=== PATIENT | female | born 1965 | race Caucasian/White ===

== ENCOUNTER 2020-08-30 16:26 | Outpatient (CLI) | payer BC, SELFPAY ==
--- NOTE | ~2020-08-30 | MM_ITS ---
EXAMINATION: MM screening paco BI w chase HISTORY: Screening TECHNIQUE: Craniocaudal and mediolateral oblique 3-D tomosynthesis images were obtained and synthetic 2-D images were generated. CAD analysis was submitted and interpreted. COMPARISON: Comparison to multiple prior studies sequentially, with oldest reviewed study dated 07/09. BREAST PARENCHYMAL COMPOSITION: The breasts are heterogenously dense, which may obscure small masses. FINDINGS: There is no evidence of suspicious mass, calcification, or architectural distortion to sugg est malignancy in either breast. There has been no suspicious interval change. IMPRESSION: 1. No mammographic evidence of malignancy. 2. Recommend routine screening mammography in one year. BI-RADS Category 1: Negative Reviewed, dictated and finalized at location A.
== END 2020-08-30 16:27 | disposition home or self-care (01) ==
LOC: ANHIMG 16:28
PROVIDERS: PCP Family Medicine; Visit Provider Family Medicine
DX: Z12.31 Encounter for screening mammogram for malignant neoplasm of breast (principal)
CPT/HCPCS: 77063; 77067

== ENCOUNTER 2021-05-22 12:18 | Outpatient (CLI) | payer BC, SELFPAY ==
--- NOTE | ~2021-05-22 | MMUS_ITS ---
EXAMINATION: MM diagnostic paco BI w chase, US breast BI complete HISTORY: Palpable left breast abnormality. Right breast pain. TECHNIQUE: Additional 3-D tomosynthesis images of the breasts were performed and synthetic 2-D images were generated. CAD analysis was submitted and interpreted. High resolution bilateral complete breas t ultrasound was performed. COMPARISON: Comparison to multiple prior studies sequentially, with oldest reviewed study dated 07/09. BREAST PARENCHYMAL COMPOSITION: The breasts are heterogenously dense, which may obscure small masses FINDINGS: MAMMOGRAPHIC FINDINGS: There are no suspicious masses, calcifications or architectural distortion in either breast to sugges t malignancy. ULTRASOUND: Complete bilateral US of all 4 quadrants of the breasts and retroareolar region was reviewed. Normal heterogeneous echotexture throughout both breasts without discrete mass. IMPRESSION: 1. No evidence for malignancy in either breast. 2. Routine yearly screening mammogram and regular clinical breast examination are recommended. BI-RADS Category 1: Negative Reviewed, dictated and finalized at location A. ING MACHINE SET UP OPERATOR IMPRESSION: 1. No evidence for malignancy in either breast. 2. Routine yearly screening mammogram and regular clinical breast examination a re recommended. BI-RADS Category 1: Negative
== END 2021-05-22 12:19 | disposition home or self-care (01) ==
LOC: ANHIMG 12:19
PROVIDERS: PCP Family Medicine; Visit Provider Family Medicine
DX: N63.10 Unspecified lump in the right breast, unspecified quadrant (principal); N63.20 Unspecified lump in the left breast, unspecified quadrant; N60.19 Diffuse cystic mastopathy of unspecified breast; N64.4 Mastodynia
CPT/HCPCS: 76641; 77062; 77066; G0279

== ENCOUNTER 2022-10-18 07:58 | Outpatient (CLI) | payer BC, SELFPAY ==
--- NOTE | ~2022-10-18 | MM_ITS ---
EXAMINATION: MM screening [facility] BI w chase HISTORY: Screening mammogram TECHNIQUE: Craniocaudal and mediolateral oblique 3-D tomosynthesis images were obtained and synthetic 2-D images were generated. CAD analysis was submitted and interpreted. COMPARISON: 05/22/2021, 08/30/2020, 03/09/2019, 08/28/2017 BREAST PARENCHYMAL COMPOSITION: The breasts are heterogeneously dense, which may obscure small masses . FINDINGS: No suspicious mass, calcification, or architectural distortion are identified in either jef ast to suggest malignancy. There has been no suspicious interval change. IMPRESSION: 1. No mammographic evidence of malignancy. 2. Recommend routine screening mammography in one year. BI-RADS Category 1: Negative Reviewed, dictated and finalized at location A.
== END 2022-10-18 07:59 | disposition home or self-care (01) ==
LOC: ANHIMG 08:00
PROVIDERS: PCP Family Medicine; Visit Provider Family Medicine
DX: Z12.31 Encounter for screening mammogram for malignant neoplasm of breast (principal)
CPT/HCPCS: 77063; 77067

== ENCOUNTER → 2022-12-24 13:28 | Outpatient (CLI) | payer BC, SELFPAY ==
--- NOTE | ~2022-12-24 | XR_ITS ---
XR ankle LT min 3V 12/24/2022 13:39 Indication: Left ankle pain after injury Procedure: 4 views left ankle Comparison: No prior studies for comparison. Findings: There is anatomic alignment. No fracture or traumatic malalignment. Ankle mortise intact. S mall degenerative calcaneal enthesophyte. No foreign bodies. Talar dome is normal. Impression: 1: No significant bone or joint abnormality. Reviewed, dictated and finalized at location B. Impression: 1: No significant bone or joint abnormality.
== END ==
PROVIDERS: PCP Family Medicine; Visit Provider Nurse Practitioner Family
DX: M25.572 Pain in left ankle and joints of left foot (principal)
CPT/HCPCS: 73610

== ENCOUNTER 2023-07-25 17:45 | Emergency (ER) | payer BC, SELFPAY ==
--- NOTE | ~2023-07-25 | XR_ITS ---
XR ankle LT min 3V 07/25/2023 18:03 Indication: Left ankle pain Procedure: 4 views left ankle Comparison: 12/24/2022 Findings: There is a small linear ossific density distal to the fibula, suspicious for avulsion fract ure. Ankle mortise intact. No other fracture identified. No foreign bodies. There is a plantar calcan eal enthesophyte. Impression: 1: Possible small avulsion fracture fragment adjacent to the lateral malleolus. Correlate for point t enderness. Reviewed, dictated and finalized at location A. Impression: 1: Possible small avulsion fracture fragment adjacent to the lateral malleolus. Correlate for point tenderness.
--- NOTE | 2023-07-25 17:56 | ED.LOWEXIN ---
HPI - Extremity Injury (Lower) General Chief Complaint: Extremity Injury, Lower Stated Complaint: INJURED L ANKLE Source: patient Mode of arrival: ambulatory Limitations: no limitations History of Present Illness HPI Narrative: 58-year-old female presented for complaint of left(lateral) ankle pain and swelling after injury today. She states while running to her car she slipped and twisted the ankle, stating she heard a crack. She has been able to bear weight but reports pain to the ankle. Has not yet taken anything for pain. Denies deformity, bruising, numbness, tingling or weakness of the foot. Related Data Home Medications Medication Instructions Recorded Confirmed zinc sulfate 50 mg zinc (220 mg) 50 mg PO DAILY 06/15/20 07/25/23 capsule (Orazinc) Allergies Allergy/AdvReac Type Severity Reaction Status Date / Time No Known Allergies Allergy Verified 07/09/23 14:36 Review of Systems Review of Systems: CONSTITUTIONAL: Denies body aches, fever, chills CARDIOVASCULAR: Denies chest pain, palpitations, or edema. RESPIRATORY: Denies cough or dyspnea. SKIN: Denies open wounds. MUSCULOSKELETAL: Reports left ankle pain NEUROLOGIC: Denies headache, numbness, tingling, or weakness. All systems reviewed & are unremarkable except as noted in HPI and below PMFSH Past Medical History Medical History Carpal tunnel syndrome History of mammogram Nose septum deviation Surgical History Surgical History History of colonoscopy History of hernia repair Family History Family History Grandparent Diabetes mellitus Family history of malignant neoplasm of breast, Onset Age: 70 Other Family history of cardiovascular disease Family history of elevated blood lipids Family history of glaucoma Family history of malignant neoplasm of male breast Hypertension Social History Social History Smoking status: Never smoker Second hand tobacco smoke exposure: No Alcohol intake: never Substance use: never Substance use type: does not use Lack of Transportation: No Lack of Food: Never True Current Housing: I Have Housing Concerned About Future Housing: No Difficulty Paying Gas/Electric Bills: No Difficulty Paying for Meds: No Currently Unemployed: No Education: High School Diploma/GED Difficulty w/ Childcare or Family Care: No Living arrangements: alone Occupation/Education: occupation Gender identity (if verbalized by the patient): Female Spiritual care concerns: No Agree to blood products: Yes Comments At time of signature, I have reviewed and agree with nursing past medical, surgical, social and family history unless otherwise noted. Please see nursing chart for further information. There is no relevant family history pertinent to the presenting complaint Exam Narrative: GENERAL: Well-appearing CHEST: Speaks in full sentences. No respiratory distress. HEART: Regular rate and rhythm. Normal and equal peripheral pulses. EXTREMITIES: Left foot and ankle with slightly limited strength and range of motion with flexion/extension/rotation of ankle, endorses pain with movement. Mild swelling to lateral malleolus with point tenderness. No ecchymosis, No open wounds or obvious deformity; alignment normal, Left foot has normal sensation, pulse palpable and equal bilaterally, skin warm, dry, pink. Capillary refill less than 3 seconds. SKIN: Warm, dry, no rash. NEURO: Alert and oriented x3. PSYCH: Normal mood and affect Extrem: Ankle/foot/toe images: 1. area of pain, swelling and point tenderness Course Course Emergency Course: Patient is aware of diagnosis, understands and agrees to treatment plan. Anticipatory guidance given. Patient agrees t
[2023-07-25 18:04] VITALS: BP 142/84; PULSE 78; RESP 16; TEMP 36.7; O2SAT 100
== END 2023-07-25 18:38 | disposition home or self-care (01) ==
PROVIDERS: Emergency Provider Nurse Practitioner Family; PCP Family Medicine
DX: S82.892A Other fracture of left lower leg, initial encounter for closed fracture (principal); W18.40XA Slipping, tripping and stumbling without falling, unspecified, initial encounter
CPT/HCPCS: 29515; 73610; 99214; G0463

== ENCOUNTER 2023-08-14 08:54 | Outpatient (CLI) | payer BC, SELFPAY ==
--- NOTE | 2023-08-14 11:00 | NEURO_ITS ---
Impression: # Complains of right hand pain and numbness. # Right Carpal Tunnel Syndrome, sensory more than motor. # Right ulnar neuropathy across the elbow. # Normal needle/EMG exam. Nerve Conduction Studies Anti Sensory Summary Table Stim Site NR Peak (ms) P-T Amp (?V) Site1 Site2 Delta-P (ms) Dist (cm) Angel (m/s) Left Median Anti Sensory (2-3nd Digit) Wrist 3.2 71.7 Wrist 2-3nd Digit 3.2 14.0 44 Wrist 3.2 90.7 Wrist 2-3nd Digit 3.2 14.0 44 Right Median Anti Sensory (2-3nd Digit) Wrist 3.9 65.5 Wrist 2-3nd Digit 3.9 14.0 36 Wrist 4.3 14.8 Wrist 2-3nd Digit 3.9 14.0 36 Left Radial Anti Sensory (Base 1st Digit) Wrist 1.8 52.1 Wrist Base 1st Digit 1.8 0.0 Right Radial Anti Sensory (Base 1st Digit) Wrist 2.7 18.3 Wrist Base 1st Digit 2.7 0.0 Left Ulnar Anti Sensory (5th Digit) Wrist 3.0 54.3 Wrist 5th Digit 3.0 14.0 47 Right Ulnar Anti Sensory (5th Digit) Wrist 2.7 77.5 Wrist 5th Digit 2.7 14.0 52 Motor Summary Table Stim Site NR Onset (ms) O-P Amp (mV) Site1 Site2 Delta-0 (ms) Dist (cm) Angel (m/s) Left Median Motor (Abd Poll Brev) Wrist 3.4 6.4 Elbow Wrist 4.8 26.0 54 Elbow 8.2 5.2 Right Median Motor (Abd Poll Brev) Wrist 3.8 8.9 Elbow Wrist 5.3 28.0 53 Elbow 9.1 8.6 Left Ulnar Motor (Abd Dig Minimi) Wrist 2.3 7.1 A Elbow Wrist 5.3 29.0 55 A Elbow 7.6 6.3 Right Ulnar Motor (Abd Dig Minimi) Wrist 2.7 7.8 A Elbow Wrist 5.7 28.0 49 A Elbow 8.4 6.9 B Elbow Wrist 3.5 18.0 51 B Elbow 6.2 6.8 F Wave Studies NR F-Lat (ms) L-R F-Lat (ms) Left Median (Mrkrs) (Abd Poll Brev) 28.41 1.23 Right Median (Mrkrs) (Abd Poll Brev) 29.64 1.23 Left Ulnar (Mrkrs) (Abd Dig Min) 28.30 1.11 Right Ulnar (Mrkrs) (Abd Dig Min) 29.42 1.11 EMG Side Muscle Nerve Root Ins Act Fibs Amp Dur Recrt Comment Right 1stDorInt Ulnar C8-T1 Nml Nml Nml Nml Nml Right Ext Indicis Radial (Post Int) C7-8 Nml Nml Nml Nml Nml Right Ext Digitorum Radial (Post Int) C7-8 Nml Nml Nml Nml Nml Right BrachioRad Radial C5-6 Nml Nml Nml Nml Nml Right PronatorTeres Median C6-7 Nml Nml Nml Nml Nml Right Abd Poll Brev Median C8-T1 Nml Nml Nml Nml Nml Right ABD Dig Min Ulnar C8-T1 Nml Nml Nml Nml Nml Left 1stDorInt Ulnar C8-T1 Nml Nml Nml Nml Nml Left Ext Indicis Radial (Post Int) C7-8 Nml Nml Nml Nml Nml Left Ext Digitorum Radial (Post Int) C7-8 Nml Nml Nml Nml Nml Left BrachioRad Radial C5-6 Nml Nml Nml Nml Nml Left PronatorTeres Median C6-7 Nml Nml Nml Nml Nml Left Abd Poll Brev Median C8-T1 Nml Nml Nml Nml Nml Left ABD Dig Min Ulnar C8-T1 Nml Nml Nml Nml Nml MTDD
== END 2023-08-14 08:55 | disposition home or self-care (01) ==
LOC: ANHNEURO 08:55
PROVIDERS: PCP Family Medicine; Visit Provider Plastic Surgery
DX: G56.01 Carpal tunnel syndrome, right upper limb (principal); G56.21 Lesion of ulnar nerve, right upper limb
CPT/HCPCS: 95886; 95911

== ENCOUNTER 2023-11-14 07:27 | Outpatient (CLI) | payer BC, SELFPAY ==
--- NOTE | ~2023-11-14 | MM_ITS ---
EXAMINATION: MM screening paco BI w chase HISTORY: Screening TECHNIQUE: Craniocaudal and mediolateral oblique 3-D tomosynthesis images were obtained and synthetic 2-D images were generated. CAD analysis was submitted and interpreted. COMPARISON: Comparison to multiple prior studies sequentially, with oldest reviewed study dated 07/05. BREAST PARENCHYMAL COMPOSITION: Dense: The breasts are heterogeneously dense, which may obscure small masses FINDINGS: There is no evidence of suspicious mass, calcification, or architectural distortion to sugg est malignancy in either breast. There has been no suspicious interval change. IMPRESSION: 1. No mammographic evidence of malignancy. 2. Recommend routine screening mammography in one year. BI-RADS Category 1: Negative Reviewed, dictated and finalized at location B.
== END 2023-11-14 07:28 | disposition home or self-care (01) ==
PROVIDERS: PCP Family Medicine; Visit Provider Family Medicine
DX: Z12.31 Encounter for screening mammogram for malignant neoplasm of breast (principal)
CPT/HCPCS: 77063; 77067

== ENCOUNTER 2024-01-08 02:12 | Day surgery (SDC) | payer BC, SELFPAY ==
[2024-01-01 16:43] VITALS: BMI 22.4
--- NOTE | 2024-01-01 16:49 | SUR.PREOP ---
Addendum entered by Annie Rosales RN 01/02/24 11:18: Pt notified nothing to eat or drink after midnight. Original Note: Report to the Outpatient Waiting Room, entrance under the [facility] pavilion located off [facility], at time 0700 on date 01/08/24 . Planned Procedure Time: 0900.? Time changes happen often and if your time is changed the preop area will call you the afternoon before. - You and your visitor will be asked to self-screen and do not enter if you have any COVID symptoms. Please call surgeon if you need to reschedule. - A mask is optional within the hospital at this time. Patients may have clear liquids (water, carbonated beverages, clear teas, apple juice) until 3 hours prior to surgery with a maximum of 20 ounces. - No food from midnight until time of surgery and no smoking - Infants may have breast milk until 4 hours before surgery, formula 6 hours prior to surgery. - Children will be allowed to drink immediately following surgery.? If applicable, please bring a bottle or sippy cup to assist with drinking. Juice, water, soda, and popsicles are readily available.? For infants on formula, please bring formula the day of surgery.? Pacifiers are allowed. Take only the following medications with a SIP of water on the morning of surgery: ____n/a____ DO NOT STOP ANY OF YOUR OTHER PRESCRIPTION MEDICATIONS PRIOR TO SURGERY EXCEPT THE FOLLOWING Medications to discontinue per physician ____supplements and vitamins for 3 days prior Date to take last dose Please no make-up, nail equatorial guinean, hairspray, perfume, deodorant, or body powder the day of surgery.? No jewelry (including any body piercings) or valuables the day of surgery, leave them at home.? Please take a shower or bath the night before, or the morning of, surgery with an antibacterial soap.? Wear comfortable, loose fitting clothing.? Children are encouraged to wear pajamas. - Jewelry must be removed prior to entering the operating room.? Rings and piercings that are not removed may be cut off. - The hospital will not accept responsibility for valuables.? - Please leave all valuables, including medications, at home the day of surgery. If you are going home after surgery, a licensed hearse driver must drive you home.? - NO public transportation without another adult if you receive anesthesia. - We recommend that an adult stay with you for 24 hours following discharge. - We also recommend that you do not drive, make important decision, drink alcoholic beverages, or take any drugs that were not prescribed by your health care provider for at least 24 hours after your discharge time. For Pediatric surgeries, we recommend two adults accompany the child home. Follow any additional instructions given to you from your surgeon. Telephone instructions given to __patient__and asked if any additional questions and then verbalized understanding. Patient advised to call surgeon office or pre surgery nurse liaison [phone] if any additional questions.
--- NOTE | 2024-01-08 07:09 | WPDHPUPDATE1 ---
History and Physical Update Update Date/Time: 01/08/24 07:09 Patient seen and examined in pre-operative holding area. No interval change in medical history or symptoms. Patient recalls previous discussion of benefits and alternatives to procedure. Continues to desire to proceed with right endoscopic possible open carpal tunnel release, right cubital tunnel release and excision of left nasal lesion. Reviewed procedure, post-op expectations and risks including but not limited to bleeding, infection, injury to tendon/nerve/vessel, decreased hand function, stiffness, RSD, no change or worsening of symptoms, recurence. I discussed the possible use of assistants and their participation in the case. Patient stated understanding and signed the consent form wishing to proceed.
--- NOTE | 2024-01-08 07:10 | P.OP_ITS ---
Procedure Note - Detailed Date of Procedure 01/08/24 Pre-op Diagnosis right cubital and carpal tunnel sydrome, nasal lesion Post-op Diagnosis Same Procedure Performed right ectr CuTR and nasal lesion excision Surgeon Agustin Kaur MD [employer] Valarie Maldonado Pa-C Anesthesia MAC Description of Procedure INFORMED CONSENT: The patient was seen and examined and marked in the pre-op area.? The patient signed the consent form. PROCEDURE IN DETAIL:The patient taken back to OR on the stretcher in supine position. Time out performed with anesthesia, surgeon and staff agreeing on patient's name site and surgery to be performed SCDs were placed on the lower extremities and inflated. A tourniquet was placed on {right} upper extremity and antibiotics given IV After anesthesia administered sedation I injected {10}cc 1%lido with epi and 0.5% marcaine plain at the operative sites The?{right upper extremity}?was prepped and draped in sterile fashion the??{right upper extremity} was? exsanguinated with Esmarch bandage and tourniquet inflated to 250mmHg I made a transverse incision in the right} volar distal wrist crease through skin and dermis with 15 blade scalpel.? Littler scissors spread down to antebrachial fascia. A small incision was made in antebrachial fascia allowing access to Carpal tunnel. I proceeded with sequential dilation staying in line with the ring finger and hugging the hook of the hamate.? I then used the synovial elevator to free any adhesions from the underside of the transverse carpal ligament. Next I was able to insert the Microaire endoscopic carpal tunnel device with direct visualization of the transverse fibers on the monitor and proceeded with complete segmental retrograde release of the ligament in its entirety.? I irrigated with normal saline and closed with 4-0 monocryl for dermis and subcuticular closure. I next proceeded with making a longitudinal incision between two heads for flexor carpi ulnaris at end of {right} cubital tunnel with 15 blade scalpel.? Littler scissors were used to spread down to FCU fascia.? An incision was made in FCU fascia and ulnar nerve identified exiting cubital tunnel.? I proceeded with complete retrograde release of the cubital tunnel including 7cm proximal for the intermuscular septum.? The nerve appeared healthy with visible vaso nervorum.? There was no subluxation on full elbow range of motion. ? I irrigated with normal saline and closure with 3-0 vicryl for dermis and 4-0 monocryl for subcuticular. next I used an 18 gauge needle as scalpel to cirumferentially excise the left nasal cyst which measured 4mm in diameter. cautery with bipola. I irrigated with normal saline and dressed with bacitracin and band-aid The wrist and elbow incisions were covered with Dermabond then 4x4s, leslye, and a posterior elbow and volar wrist splint for patient safety, security and comfort and secured with karon bandages after the tourniquet was let down noting the hand was warm and well perfused.? Patient awaken from anesthesia and transferred to recovery in stable condition Complications - none EBL- 1cc Disposition - home in stable conditions Valarie Maldonado PA-C was essential for positioning, retraction, closure and dressing placement [facility] Billing Surgery - Charge Forward: Surgery Billing ([id number], [id number], [id number])
[2024-01-08 07:30] VITALS: BP 116/71; PULSE 73; RESP 18; TEMP 37; O2SAT 100
[2024-01-08] MEDS: LACTATED RINGERS 1,000 ML 30 ML IV CONT (08:00)
--- NOTE | 2024-01-08 08:26 | P.PNAN_ITS ---
Anes - Initial Pre Proc Eval Procedure: Operation Date: 01/08/24 09:00 Proposed Procedures p Left Nasal Lesion Excision, - Agustin Kaur MD s Right Endoscopic Carpal Tunnel, Possible Open, Right Cubital Tunnel Release - Agustin Kaur MD Date/Time: 01/08/24 08:26 Surgeon: Agustin Kaur MD Pre Op Diagnosis: carpal tunnel sydrome, lesion of ulnar nerve Patient Data Age: 58 Gender: F Height: 1.57 m Weight: 55.79 kg Allergies Allergy/AdvReac Type Severity Reaction Status Date / Time No Known Allergies Allergy Verified 08/20/23 08:18 Home Medications Medication Instructions Recorded Confirmed Type multivitamin 1 cap PO DAILY #30 caps 02/17/19 01/01/24 Rx Patient hx anesthesia problems: none Family hx anesthesia problems: none Results Review: All pre-operative results and documents have been reviewed as part of the pre- operative evaluation. [facility] Past Medical History Medical History Carpal tunnel syndrome History of mammogram Nose septum deviation Surgical History Surgical History History of colonoscopy History of hernia repair Family History Family History Grandparent Diabetes mellitus Family history of malignant neoplasm of breast, Onset Age: 70 Other Family history of cardiovascular disease Family history of elevated blood lipids Family history of glaucoma Family history of malignant neoplasm of male breast Hypertension Social History Social History Smoking status: Never smoker Second hand tobacco smoke exposure: No Alcohol intake: never Substance use: never Substance use type: does not use Lack of Transportation: No Lack of Food: Never True Current Housing: I Have Housing Concerned About Future Housing: No Difficulty Paying Gas/Electric Bills: No Difficulty Paying for Meds: No Currently Unemployed: No Education: High School Diploma/GED Difficulty w/ Childcare or Family Care: No Living arrangements: with family Occupation/Education: occupation Gender identity (if verbalized by the patient): Female Spiritual care concerns: No Agree to blood products: Yes Anes - Eval Final PreProcedure Day of Procedure 01/08/24 08:26 Patient weight: normal Heart: regular rate and rhythm Lungs: clear to auscultation Airway: Mallampati scale class II Neurological: alert and oriented Last oral intake: >/= 8 hours ASA classification: II Emergent: no Anesthetic plan: proceed Anesthesia type and monitoring: general GIVS and standard monitoring Results Review: All pre-operative results and documents have been reviewed as part of the pre- operative evaluation. Informed Consent: The patient's anesthetic plan and its attendant risks and benefits were discussed with the patient/family/POA. Questions were solicited and answers provided to the satisfaction of the patient/family/POA.
[2024-01-08] MEDS: LIDO 1%/EPINEPHRINE 1:100,000 50 ML VIAL 10 ML INFILTRATE (08:40)
[2024-01-08] MEDS: ceFAZolin 2 GM/D5W 50 ML 2 GM/50 ML BAG IVPB (08:46)
[2024-01-08 09:20] VITALS: BP 90/50; PULSE 80; RESP 14; O2SAT 96
[2024-01-08 09:50] VITALS: BP 100/76; PULSE 94
== END 2024-01-08 10:10 | disposition home or self-care (01) ==
PROVIDERS: PCP Family Medicine; Visit Provider Plastic Surgery
PROC: (CPT 29848; principal; 2024-01-08 09:00)
PROC: 01N54ZZ Release Median Nerve, Percutaneous Endoscopic Approach (ICD-10-PCS; CPT 29848; 2024-01-08 09:00)
DX: G56.01 Carpal tunnel syndrome, right upper limb (principal); G56.21 Lesion of ulnar nerve, right upper limb; D22.39 Melanocytic nevi of other parts of face
CPT/HCPCS: 29848; 64718; 11440; 88305; A9270; J0690; J2704; J3010; J7120

== ENCOUNTER 2024-02-25 16:41 | Outpatient (CLI) | payer BC, SELFPAY ==
--- NOTE | ~2024-02-25 | XR_ITS ---
HISTORY: M18.11 - Unilateral primary osteoarthritis of first carpo... COMPARISON: None TECHNIQUE: 3 views of the left hand were performed. FINDINGS: No acute fracture is identified. The proximal joint spaces are preserved. The carpal arcs are intact. Narrowing of the distal interphalangeal joint space is present. Mild radiocarpal joint space narrowing with sclerosis of the distal radius is present. Trace negative ulnar variance is detected. Periarticular osteopenia is present suggesting osteoarthritis Degenerative disease within the first carpometacarpal joint space with joint space narrowing and scle rosis. No significant soft tissue swelling. No radiopaque foreign body is identified. IMPRESSION: Degenerative disease without acute fracture or dislocation within the right hand, as detailed above. Reviewed, dictated and finalized at location A. TER AND TOUR BUS DRIVER IMPRESSION: Degenerative disease without acute fracture or dislocation within the right adams d, as detailed above.
== END 2024-02-25 16:42 | disposition home or self-care (01) ==
LOC: ANHIMG 16:44
PROVIDERS: PCP Family Medicine; Visit Provider Plastic Surgery
DX: M18.11 Unilateral primary osteoarthritis of first carpometacarpal joint, right hand (principal)
CPT/HCPCS: 73130

== ENCOUNTER 2024-11-16 14:21 | Outpatient (CLI) | payer BC, SELFPAY ==
--- NOTE | ~2024-11-16 | US_ITS ---
Pelvic ultrasound. Clinical History: Postmenopausal bleeding Technique: Realtime transvaginal scanning of the pelvis was performed. Color flow Doppler and Doppler spectral analysis were performed. Findings: The uterus is anteverted, and measures 6.5 x 2.8 x 4.0 cm. The endometrial stripe has a th ickness of 3 mm. No focal mass is identified. Right ovary measures 1.9 x 0.9 x 1.5 cm. No right adnexal mass seen. Left ovary not visualized. No left adnexal mass seen. There is no evidence of free fluid in the cul de sac. Impression: No abnormal endometrial thickening. Reviewed, dictated and finalized at location . Impression: No abnormal endometrial thickening.
== END 2024-11-16 14:22 | disposition home or self-care (01) ==
PROVIDERS: PCP Family Medicine; Visit Provider Student in an Organized Health Care Education/Training Program
DX: N95.0 Postmenopausal bleeding (principal)
CPT/HCPCS: 76830